=== PATIENT | male | born 1980 | race Caucasian/White ===

== ENCOUNTER 2016-05-31 04:18 | Emergency (ER) | payer MEDICAID ==
[~2016-05-31] VITALS: Ht 190.5 cm; Wt 106.7 kg
[2016-05-31] MEDS ORDERED: CLIN-60 PO (04:42)
[2016-05-31] MEDS ORDERED: BUPR1FIL3 SL (04:49)
[2016-05-31] MEDS ORDERED: LIDOCAINE 1%-EPI 1:100K, 30ML ONE (04:57)
[2016-05-31] MEDS ORDERED: DIPH,PERTUSS(ACELL),TET VAC/PF 0.5 ML IM-VACC ONE ×3 (04:58→05:12)
[2016-05-31] MEDS ORDERED: LIDOCAINE 1%-EPI 1:100K, 20ML SQ ONE (05:00)
[2016-05-31 06:01] VITALS: BP 136/81
== END 2016-05-31 06:05 | disposition home or self-care (01) ==
LOC: ED 05:50
DX: L02.413 Cutaneous abscess of right upper limb (principal); F19.10 Other psychoactive substance abuse, uncomplicated
CPT/HCPCS: 10060; 90471; 90715

== ENCOUNTER 2019-07-16 15:25 | Emergency (ER) | payer OTHER ==
[~2019-07-16] VITALS: Ht 185.4 cm; Wt 104.0 kg
[~2019-07-16 15:25] MED LIST: BUPR1FIL3 SL; CLIN150C14 PO
[2019-07-16 19:44] VITALS: BP 124/78
[2019-07-16] MEDS ORDERED: ZYPREXA (20:07)
[2019-07-16] MEDS ORDERED: PROZAC (20:07)
--- NOTE | 2019-07-16 20:07 | NUR ---
PT C/O NASAL CONGESTION AND GREEN DRAINAGE FOR ABOUT 1 YEAR. PT WAS SUPPPOSED TO HAVE SURGERY, BUT THEN WENT TO [facility]. PT CONNECTED TO MONITORING. CALL LIGHT IN REACH.
== END 2019-07-16 21:19 | disposition home or self-care (01) ==
LOC: ED 20:12
DX: A49.02 Methicillin resistant Staphylococcus aureus infection, unspecified site (principal); J01.10 Acute frontal sinusitis, unspecified; J01.00 Acute maxillary sinusitis, unspecified; L03.221 Cellulitis of neck; L03.114 Cellulitis of left upper limb; L03.113 Cellulitis of right upper limb; R51 Headache; M54.5 Low back pain; R00.0 Tachycardia, unspecified
CPT/HCPCS: 93005; 99283

== ENCOUNTER 2019-12-06 20:54 | Observation (INO) | payer BC, MEDICAID ==
[~2019-12-06] VITALS: Ht 190.5 cm; Wt 99.0 kg
[~2019-12-06 20:54] MED LIST changes: +PROZAC; +ZYPREXA
--- NOTE | 2019-12-06 21:00 | NUR ---
PT JEFF MONAHAN FROM [facility] FOR MRI/NEUROLOGICAL EVAL. PT REPORTS L SIDED NUMBNESS/WEAKNESS SINCE YESTERDAY. STATES HE WOKE UP ON THE BATHROOM FLOOR YESTERDAY AFTERNOON, HAD FALLEN OFF TOILET, POSSIBLE LOC. WENT IN TO ED AT [facility] [place] THIS MORNING D/T L SIDED WEAKNESS SYMPTOMS PERSISTING. PER EMS, TESTS DONE AT [facility] WERE NEGATIVE BUT PT TRANSFERRED HERE FOR MRI. PLACED IN C-COLLAR AT [facility] FOR POSSIBLE CERIVCAL COMPRESSION FRACTURE? PT ARRIVES TO ED SLEEPY, STATES HE RECEIVED ZYPREXA AT [facility]. OX4, ANSWERS QUESTIONS APPROPRIATELY. STILL C/O L SIDED NUMBNESS AND WEAKNESS NOTED TO SHEYLA.
--- NOTE | 2019-12-06 21:55 | NUR ---
PT SITTING UP IN GURNEY, RESTING, AWAKENS EASILY. ANSWERS QUESTIONS APPROPRIATELY.
--- NOTE | 2019-12-06 22:02 | NUR ---
MRI call in process started by Roman CYR
[2019-12-06 22:11] LABS: HCT (SEDRATE) 43.3 % (39.2-51.8)
--- NOTE | 2019-12-06 22:11 | NUR ---
PT TO MRI VIA [facility].
[2019-12-06 22:12] LABS: BASOPHILS % (AUTO) 1 % (0-1); EOSINOPHILS % (AUTO) 3 % (1-7); LYMPHOCYTES % (AUTO) 47 % (22-44); MEAN CORPUSCULAR HEMOGLOBIN 30.3 pg (27.5-34.5); MEAN CORPUSCULAR HGB CONC 34.2 g/dL (33.2-36.2); MONOCYTES % (AUTO) 9 % (2-9); NEUTROPHILS % (AUTO) 40 % (42-75); PLATELET COUNT 210 x10^3/uL (130-400); RED CELL DISTRIBUTION WIDTH 13.4 % (9.4-14.8)
[2019-12-06 22:18] LABS: ANION GAP 5 mmol/L (5-15); C-REACTIVE PROTEIN, QUANT 0.05 mg/dL (0.02-0.49); CALCIUM 9.5 mg/dL (8.5-10.1); CHLORIDE 104 mmol/L (98-107); CREATININE 0.84 mg/dL (0.7-1.3)
[2019-12-06 22:20] LABS: MD NO
[2019-12-06] MEDS ORDERED: GADOTERATE 10 MMOL/20 ML SYR ONE (23:13)
--- NOTE | 2019-12-06 23:33 | NUR ---
PT RETURNED FROM MRI. REPORTED TO VAIBHAV CYR.
--- NOTE | 2019-12-07 00:52 | NUR ---
PT SLEEPING, NO NEEDS AT THIS TIME
[2019-12-07] MEDS ORDERED: DOCUSATE 100 MG CAPSULE PO PRN (01:00)
[2019-12-07] MEDS ORDERED: LABETALOL 5MG/ML, 20ML IV PRN (01:00)
[2019-12-07] MEDS ORDERED: ACETAMINOPHEN 650 MG/20.3 ML UDC PO PRN (01:00)
--- NOTE | 2019-12-07 01:41 | NUR ---
Report given to KLARISSA Montano. Patient to be transferred to room 495.
[2019-12-07 02:00] VITALS: BP 128/81
[2019-12-07] MEDS: NICOTINE 14MG/24 HR PATCH.TD24 TD SCH (03:07)
[2019-12-07 04:17] VITALS: BP 136/76
[2019-12-07 05:53] VITALS: BP 113/68
[2019-12-07 06:05] VITALS: BP 113/68
[2019-12-07] MEDS: ASPIRIN 81 MG TABLET CHEW PO/NG SCH (08:49)
[2019-12-07 12:03] VITALS: BP 132/74
[2019-12-07] MEDS: FLUOXETINE HCL 20 MG CAPSULE PO SCH (13:25)
[2019-12-07] MEDS: OLANZAPINE 10 MG TABLET PO SCH (13:25)
[2019-12-07 20:43] VITALS: BP 111/77
[2019-12-07] MEDS ORDERED: ATORVASTATIN 40 MG TABLET PO SCH (21:00)
[2019-12-08 01:59] VITALS: BP 120/78
[2019-12-08 06:28] LABS: AMPHETAMINE SCREEN, URINE Positive (Negative); BARBITURATE SCREEN, URINE Negative (Negative); BENZODIAZEPINE SCREEN, URINE Negative (Negative); CANNABINOID SCREEN, URINE Negative (Negative); COCAINE SCREEN, URINE Negative (Negative); METHADONE SCREEN, URINE Negative (Negative); OPIATE SCREEN, URINE Positive (Negative)
[2019-12-08 06:29] LABS: CHOL/HDL RATIO 2.3; LDL/HDL RATIO 1.1 (0.5-3.0)
[2019-12-08 06:33] VITALS: BP 107/73
[2019-12-08] MEDS: NICOTINE 14MG/24 HR PATCH.TD24 TD SCH (08:10)
[2019-12-08] MEDS: ASPIRIN 81 MG TABLET CHEW PO/NG SCH (08:10)
[2019-12-08] MEDS: OLANZAPINE 10 MG TABLET PO SCH (12:24)
[2019-12-08] MEDS: FLUOXETINE HCL 20 MG CAPSULE PO SCH (12:24)
[2019-12-08 12:27] VITALS: BP 125/81
== END 2019-12-08 18:36 | disposition home or self-care (01) ==
LOC: ED 21:12 → EDIP 12-07 00:51 → INTOOBSV 12-07 00:51 → 4EST 12-07 01:55
PROVIDERS: ADMIT Family Medicine; ATTEND Family Medicine
DX: R53.1 Weakness (principal); F15.10 Other stimulant abuse, uncomplicated; F17.210 Nicotine dependence, cigarettes, uncomplicated; F11.10 Opioid abuse, uncomplicated; F41.8 Other specified anxiety disorders; Z86.19 Personal history of other infectious and parasitic diseases; Z79.899 Other long term (current) drug therapy
CPT/HCPCS: 36415; 70553; 72156; 80048; 80061; 80307; 85025; 85651; 86140; 93306; 93880; 97162; 99285; A9575; G0378

== ENCOUNTER 2019-12-31 15:38 | Inpatient (IN) | payer MEDICAID ==
[~2019-12-31] VITALS: Ht 190.5 cm; Wt 93.6 kg
[2019-12-31] MEDS ORDERED: SODIUM CHLORIDE FLUSH 10ML SYR IVF ONE ×2 (19:00→21:30)
--- NOTE | 2019-12-31 19:00 | NUR ---
RIGHT ELBOW CELLULITIS, MULTIPLE SCABS TO ARMS/TORSO ADMITS TO RECENT HEROIN USE DENIES CHILLS-APPEARS WELL
[2019-12-31 19:32] LABS: BASOPHILS % (AUTO) 0 % (0-1); EOSINOPHILS % (AUTO) 2 % (1-7); LYMPHOCYTES % (AUTO) 27 % (22-44); MEAN CORPUSCULAR HEMOGLOBIN 30.3 pg (27.5-34.5); MEAN CORPUSCULAR HGB CONC 33.9 g/dL (33.2-36.2); MEAN PLATELET VOLUME 7.9 fL (7.4-10.4); MONOCYTES % (AUTO) 9 % (2-9); NEUTROPHILS % (AUTO) 63 % (42-75); PLATELET COUNT 279 x10^3/uL (130-400); RED BLOOD COUNT 4.15 x10^6/uL (4.38-5.82); RED CELL DISTRIBUTION WIDTH 12.4 % (9.4-14.8)
[2019-12-31 19:34] LABS: ALANINE AMINOTRANSFERASE 49 U/L (12-78); ALBUMIN 3.3 g/dL (3.4-5.0); ANION GAP 3 mmol/L (5-15); CALCIUM 8.9 mg/dL (8.5-10.1); CHLORIDE 105 mmol/L (98-107); CREATININE 0.78 mg/dL (0.7-1.3)
[2019-12-31 19:36] LABS: ALKALINE PHOSPHATASE 107 U/L (45-117); BILIRUBIN,TOTAL 0.5 mg/dL (0.2-1.0); TOTAL PROTEIN 8.9 g/dL (6.4-8.2)
[2019-12-31 19:45] LABS: MD NO
--- NOTE | 2019-12-31 20:26 | NUR ---
ALL TESTING REVIEWED - PROVIDER MADE AWARE
[2019-12-31] MEDS ORDERED: PIPERACILLIN/TAZO/PMX 4.5GM 100 ML IVPB ONE (21:30)
[2019-12-31] MEDS ORDERED: VANCOMYCIN 2,400 MG in SODIUM CHLORIDE 0.9% 500 ML IV ONE (21:30)
[2019-12-31] MEDS ORDERED: VANCOMYCIN PER PHARMACY MC ONE (21:30)
--- NOTE | 2019-12-31 21:50 | NUR ---
BLOOD CULTURES X2 WELL PIV PLACEMENT ZOSYN ABOUT TO ADMINISTERED ALLERGIED CLARIFIED. PATIENT REPORTED "WELL I HAVE AN ALLERGY TO PENICILLIN IT GAVE ME A BAD RASH A CHILD SO SAYS MY MOM." PROVIDER MADE AWARE TO SWITCH ABX
[2019-12-31 21:53] LABS: BASOPHILS % (AUTO) 0 % (0-1); EOSINOPHILS % (AUTO) 2 % (1-7); LYMPHOCYTES % (AUTO) 29 % (22-44); MEAN CORPUSCULAR HEMOGLOBIN 30.3 pg (27.5-34.5); MEAN CORPUSCULAR HGB CONC 34.2 g/dL (33.2-36.2); MEAN PLATELET VOLUME 7.7 fL (7.4-10.4); MONOCYTES % (AUTO) 9 % (2-9); NEUTROPHILS % (AUTO) 59 % (42-75); PLATELET COUNT 254 x10^3/uL (130-400); RED BLOOD COUNT 4.14 x10^6/uL (4.38-5.82); RED CELL DISTRIBUTION WIDTH 12.1 % (9.4-14.8)
[2019-12-31 21:54] LABS: HCT (SEDRATE) 37.2 % (39.2-51.8)
[2019-12-31 21:55] LABS: MD NO
[2019-12-31] MEDS ORDERED: ONDANSETRON 2MG/ML, 2ML ONE (21:59)
[2019-12-31] MEDS ORDERED: ONDANSETRON 2MG/ML, 2ML IVPush ONE (22:00)
[2019-12-31] MEDS ORDERED: MORPHINE SULFATE 4 MG/ML, 1ML ONE (22:00)
[2019-12-31] MEDS ORDERED: CEFEPIME 1 GM in DEXTROSE 5% 50 ML IVPB ONE (22:00)
[2019-12-31] MEDS ORDERED: MORPHINE SULFATE 4 MG/ML, 1ML IVPush PRN (22:00)
[2019-12-31] MEDS ORDERED: SODIUM CHLORIDE 0.9% 1,000 ML IV ONE (22:00)
[2019-12-31] MEDS ORDERED: SODIUM CHLORIDE 0.9% 1,000ML IVBOLUS ONE (22:00)
[2019-12-31 22:04] LABS: ALANINE AMINOTRANSFERASE 47 U/L (12-78); ALBUMIN 3.1 g/dL (3.4-5.0); ANION GAP 2 mmol/L (5-15); CALCIUM 8.8 mg/dL (8.5-10.1); CHLORIDE 107 mmol/L (98-107); CREATININE 0.67 mg/dL (0.7-1.3)
[2019-12-31 22:06] LABS: ALKALINE PHOSPHATASE 102 U/L (45-117); BILIRUBIN,TOTAL 0.4 mg/dL (0.2-1.0); TOTAL PROTEIN 8.2 g/dL (6.4-8.2)
--- NOTE | 2019-12-31 22:10 | NUR ---
Ballet Dancer was told by provider(Ryan GUY)not to give Cefepime, to start the vanco instead.
[2019-12-31] MEDS ORDERED: FLUT16SP24 NS (22:18)
[2019-12-31] MEDS ORDERED: DOXY100C15 PO (22:18)
[2019-12-31] MEDS ORDERED: OLAN5TAB9 PO (22:18)
--- NOTE | 2019-12-31 22:20 | NUR ---
REPORT TO FAIZA CYR
[2019-12-31] MEDS ORDERED: POLYETHYLENE GLYCOL 17 GM PACKET PO PRN (23:00)
[2019-12-31] MEDS ORDERED: KETOROLAC 30 MG/1 ML IV PRN (23:00)
[2019-12-31] MEDS ORDERED: ONDANSETRON ODT 4 MG PO PRN (23:00)
[2019-12-31] MEDS: OLANZAPINE 5 MG TABLET PO SCH (23:00)
[2019-12-31] MEDS ORDERED: HEPARIN 5,000 UNITS/ML, 1ML SQ SCH (23:00)
[2019-12-31] MEDS ORDERED: VANCOMYCIN PER PHARMACY MC PRN (23:00)
[2019-12-31] MEDS ORDERED: OXYcodone IR 5MG TABLET PO PRN (23:00)
[2019-12-31] MEDS ORDERED: BISACODYL 10 MG SUPP PR PRN (23:00)
[2019-12-31] MEDS ORDERED: ACETAMINOPHEN 325 MG TABLET PO PRN (23:00)
--- NOTE | 2019-12-31 23:15 | NUR ---
Rec'd report from Josh CYR. Patient resting comfortably at this time. Hospitalist decided to wait on the cefepime, Vanco started instead until all admitting orders come in. VSS, call hilario within reach
[2019-12-31] MEDS ORDERED: PHARMACOKINETIC MONITORING MC PRN (23:30)
[2020-01-01 01:22] VITALS: BP 136/66
[2020-01-01] MEDS ORDERED: CEFTRIAXONE PMX 2GM/50ML 50 ML IVPB SCH (01:39)
[2020-01-01] MEDS: DOXYCYCLINE 100 MG in DEXTROSE 5% 250 ML IV SCH ×2 (03:11→14:46)
[2020-01-01 05:28] LABS: CALCIUM 8.3 mg/dL (8.5-10.1); CHLORIDE 107 mmol/L (98-107)
[2020-01-01 05:30] LABS: BASOPHILS % (AUTO) 0 % (0-1); EOSINOPHILS % (AUTO) 1 % (1-7); LYMPHOCYTES % (AUTO) 31 % (22-44); MEAN CORPUSCULAR HEMOGLOBIN 29.9 pg (27.5-34.5); MEAN CORPUSCULAR HGB CONC 33.7 g/dL (33.2-36.2); MEAN PLATELET VOLUME 8.2 fL (7.4-10.4); MONOCYTES % (AUTO) 9 % (2-9); NEUTROPHILS % (AUTO) 59 % (42-75); PLATELET COUNT 215 x10^3/uL (130-400); RED CELL DISTRIBUTION WIDTH 12.4 % (9.4-14.8)
[2020-01-01 05:31] LABS: ANION GAP 2 mmol/L (5-15); CREATININE 0.62 mg/dL (0.7-1.3)
[2020-01-01 05:34] LABS: MD NO
[2020-01-01 07:17] VITALS: BP 121/71
[2020-01-01] MEDS: FLUTICASONE NASAL SPRAY 16GM NAS SCH (09:00)
[2020-01-01] MEDS ORDERED: LORazepam 2 MG/ML, 1ML IVPush PRN (09:30)
[2020-01-01] MEDS ORDERED: GADOTERATE 10 MMOL/20 ML VIAL ONE (09:48)
[2020-01-01] MEDS: ENOXAPARIN 40 MG/0.4 ML SQ SCH (10:25)
[2020-01-01] MEDS: SENNA/DOCUSATE TABLET PO SCH (10:25)
[2020-01-01] MEDS: VANCOMYCIN 2,000 MG in SODIUM CHLORIDE 0.9% 500 ML IV SCH ×2 (11:22→23:11)
[2020-01-01 13:27] VITALS: BP 108/68
[2020-01-01 18:14] VITALS: BP 126/71
[2020-01-01] MEDS: OLANZAPINE 5 MG TABLET PO SCH (20:23)
[2020-01-02 00:59] VITALS: BP 116/71
[2020-01-02] MEDS: DOXYCYCLINE 100 MG in DEXTROSE 5% 250 ML IV SCH ×2 (02:47→15:34)
[2020-01-02 07:15] VITALS: BP 122/65
[2020-01-02] MEDS: SENNA/DOCUSATE TABLET PO SCH (07:59)
[2020-01-02] MEDS: ENOXAPARIN 40 MG/0.4 ML SQ SCH (08:00)
[2020-01-02] MEDS: FLUTICASONE NASAL SPRAY 16GM NAS SCH (08:02)
[2020-01-02] MEDS: VANCOMYCIN 2,000 MG in SODIUM CHLORIDE 0.9% 500 ML IV SCH ×2 (12:00→23:41)
[2020-01-02 13:22] VITALS: BP 119/67
[2020-01-02 19:10] VITALS: BP 129/71
[2020-01-02] MEDS: OLANZAPINE 5 MG TABLET PO SCH (19:51)
[2020-01-03 01:35] VITALS: BP 157/81
[2020-01-03 02:08] LABS: AMPHETAMINE SCREEN, URINE Positive (Negative); BARBITURATE SCREEN, URINE Negative (Negative); BENZODIAZEPINE SCREEN, URINE Negative (Negative); CANNABINOID SCREEN, URINE Negative (Negative); COCAINE SCREEN, URINE Negative (Negative); METHADONE SCREEN, URINE Negative (Negative); OPIATE SCREEN, URINE Positive (Negative)
[2020-01-03] MEDS: DOXYCYCLINE 100 MG in DEXTROSE 5% 250 ML IV SCH (03:36)
[2020-01-03 07:21] VITALS: BP 132/75
[2020-01-03] MEDS: SENNA/DOCUSATE TABLET PO SCH (09:00)
[2020-01-03] MEDS: FLUTICASONE NASAL SPRAY 16GM NAS SCH (09:43)
[2020-01-03] MEDS: ENOXAPARIN 40 MG/0.4 ML SQ SCH (09:43)
[2020-01-03] MEDS ORDERED: DOXY100C15 PO (10:12)
[2020-01-03] MEDS ORDERED: SULF1TAB24 PO (10:12)
[2020-01-03] MEDS: VANCOMYCIN 2,000 MG in SODIUM CHLORIDE 0.9% 500 ML IV SCH (11:00)
[2020-01-03] MEDS ORDERED: LORazepam 1MG TABLET PO ONE (12:00)
== END 2020-01-03 12:14 | disposition home or self-care (01) | DRG 603 ==
LOC: ED 16:54 → EDIP 22:58 → 3N 01-01 00:59
PROVIDERS: ADMIT Internal Medicine; ATTEND Hospitalist
DX: L03.113 Cellulitis of right upper limb (principal); M70.21 Olecranon bursitis, right elbow; B19.20 Unspecified viral hepatitis C without hepatic coma; D64.9 Anemia, unspecified; F11.10 Opioid abuse, uncomplicated; F15.10 Other stimulant abuse, uncomplicated; F17.210 Nicotine dependence, cigarettes, uncomplicated; F32.9 Major depressive disorder, single episode, unspecified; Z86.14 Personal history of Methicillin resistant Staphylococcus aureus infection; R70.0 Elevated erythrocyte sedimentation rate; Z86.73 Personal history of transient ischemic attack (TIA), and cerebral infarction without residual deficits; Z90.89 Acquired absence of other organs; Z88.0 Allergy status to penicillin
CPT/HCPCS: 36415; 73080; 87806; 96361; 96374; 96375; 99285; A9575; 71045; 80048; 80053; 80202; 80307; 83605; 85025; 85651; 87040; 87491; 87591; 93005; G0378; J0696; J1644; J1650; J2405; J3370; J7060; G0475; J2270; J7030; J7040

== ENCOUNTER 2020-10-16 14:53 | Emergency (ER) | payer MEDICAID, OTHER ==
[~2020-10-16] VITALS: Ht 182.9 cm; Wt 103.6 kg
[~2020-10-16 14:53] MED LIST changes: -CLIN150C14 PO; +CLIN150C15 PO; +DOXY-246 PO; +FLUT16SP24 NS; +OLAN5TAB69 PO; +SULF-23 PO
--- NOTE | 2020-10-16 15:17 | NUR ---
NO ANSWER FROM TRIAGE
[2020-10-16 15:26] VITALS: BP 135/82
[2020-10-16] MEDS ORDERED: IBUPROFEN 600 MG TABLET ONE (19:12)
[2020-10-16] MEDS ORDERED: BENZONATATE 100 MG CAPSULE ONE (19:12)
[2020-10-16] MEDS ORDERED: IBUPROFEN 200 MG TABLET PO ONE (19:30)
[2020-10-16] MEDS ORDERED: BENZONATATE 100 MG CAPSULE PO ONE (19:30)
== END 2020-10-16 19:22 | disposition home or self-care (01) ==
LOC: ED 18:57
DX: B34.9 Viral infection, unspecified (principal); Z20.822 Contact with and (suspected) exposure to COVID-19; F17.210 Nicotine dependence, cigarettes, uncomplicated
CPT/HCPCS: 71045; 99284; 99406; U0003; U0005

== ENCOUNTER 2020-10-20 14:17 | Inpatient (IN) | payer MEDICAID ==
[~2020-10-20] VITALS: Ht 190.5 cm; Wt 103.4 kg
--- NOTE | 2020-10-20 14:54 | NUR ---
chicken raiser note: Pt to room from xray when studies completed.
[2020-10-20] MEDS ORDERED: SODIUM CHLORIDE 0.9% 1,000ML IVBOLUS ONE (15:00)
[2020-10-20] MEDS ORDERED: ACETAMINOPHEN 500 MG TABLET PO ONE ×2 (15:00)
[2020-10-20] MEDS ORDERED: SODIUM CHLORIDE FLUSH 10ML SYR IVF ONE (15:00)
[2020-10-20] MEDS ORDERED: ACETAMINOPHEN 500 MG TABLET ONE (15:10)
--- NOTE | 2020-10-20 15:22 | NUR ---
PT UPRIGHT ON GURNEY AWAKE & COMFORTABLE, TALKING ON CELLPHONE, RESPONDS APPROP TO STAFF, NAD WITH SUPPL O2 IN PLACE, COMFORT MEASURES PROVIDED, CALL LIGHT WITHIN REACH.
[2020-10-20 15:40] LABS: ALANINE AMINOTRANSFERASE 84 U/L (12-78); ALBUMIN 3.3 g/dL (3.4-5.0); ANION GAP 7 mmol/L (5-15); CALCIUM 8.1 mg/dL (8.5-10.1); CHLORIDE 102 mmol/L (98-107); CREATININE 0.74 mg/dL (0.7-1.3)
[2020-10-20 15:43] LABS: ALKALINE PHOSPHATASE 69 U/L (45-117); BASOPHILS % (AUTO) 0 % (0-1); BILIRUBIN,TOTAL 0.6 mg/dL (0.2-1.0); EOSINOPHILS % (AUTO) 0 % (1-7); LYMPHOCYTES % (AUTO) 37 % (22-44); MEAN CORPUSCULAR HEMOGLOBIN 30.3 pg (27.5-34.5); MEAN CORPUSCULAR HGB CONC 35.1 g/dL (33.2-36.2); MEAN PLATELET VOLUME 8.4 fL (7.4-10.4); MONOCYTES % (AUTO) 10 % (2-9); NEUTROPHILS % (AUTO) 53 % (42-75); PLATELET COUNT 144 x10^3/uL (130-400); RED BLOOD COUNT 4.36 x10^6/uL (4.38-5.82); RED CELL DISTRIBUTION WIDTH 13.5 % (9.4-14.8); TOTAL PROTEIN 7.3 g/dL (6.4-8.2)
[2020-10-20 16:02] LABS: MICROSCOPIC INDICATED
--- NOTE | 2020-10-20 16:05 | NUR ---
PT REMAINS UPRIGHT ON GURNEY AWAKE & COMFORTABLE, WATCHING TV, RESPONDS APPROP TO STAFF, NAD WITH SUPPL O2 IN PLACE, NO NEEDS AT THIS TIME, CALL LIGHT WITHIN REACH.
[2020-10-20] MEDS ORDERED: DEXAMETHASONE 4 MG TABLET PO ONE (16:30)
[2020-10-20] MEDS ORDERED: DEXAMETHASONE 4 MG TABLET ONE (16:41)
--- NOTE | 2020-10-20 17:01 | NUR ---
PT UPRIGHT ON GURNEY ABLE TO DOZE OFF WITH TV ON, AWAKENS & RESPONDS APPROP TO STAFF, NAD WITH SUPPL O2 IN PLACE, NO NEEDS AT THIS TIME, CALL LIGHT WITHIN REACH.
--- NOTE | 2020-10-20 17:45 | NUR ---
PT DESAT TO 81% RA DURING AMBULATION- ERP AWARE.
[2020-10-20] MEDS ORDERED: CEFTRIAXONE 1,000 MG in DEXTROSE 5% 50 ML IVPB ONE (18:00)
[2020-10-20] MEDS ORDERED: DEXAMETHASONE 4 MG/ML, 1ML IVPush ONE (18:00)
[2020-10-20] MEDS ORDERED: DEXAMETHASONE 4 MG/ML, 1ML ONE ×2 (18:12→19:26)
[2020-10-20] MEDS ORDERED: OMNIPAQUE 350 MG/ML, 100ML BOTTLE ONE (18:49)
[2020-10-20] MEDS ORDERED: MELATONIN 5 MG TABLET PO PRN (19:00)
[2020-10-20] MEDS ORDERED: ENOXAPARIN 40 MG/0.4 ML SQ SCH (19:00)
[2020-10-20] MEDS ORDERED: ONDANSETRON 2MG/ML, 2ML IVPush PRN (19:00)
[2020-10-20] MEDS ORDERED: LABETALOL 5MG/ML, 20ML IVPush PRN (19:00)
[2020-10-20] MEDS ORDERED: POLYETHYLENE GLYCOL 17 GM PACKET PO PRN (19:00)
[2020-10-20] MEDS ORDERED: PHARMACY MAY ADJ FOR RENAL FX MC PRN (19:00)
--- NOTE | 2020-10-20 19:05 | NUR ---
REPORT GIVEN TO ADALGISA
--- NOTE | 2020-10-20 19:06 | NUR ---
RECIEVED REPORT FROM LELA CYR.
[2020-10-20] MEDS ORDERED: ENOXAPARIN 40 MG/0.4 ML ONE (19:26)
[2020-10-20] MEDS: DEXAMETHASONE 4 MG/ML, 1ML IVPush SCH (19:39)
--- NOTE | 2020-10-20 20:35 | NUR ---
Pt to be admitted to MEDICAL, room 336. Report called to GRACIE.
--- NOTE | 2020-10-20 20:57 | NUR ---
PATIENT ACCIDENTLY PULLED IV IN HAND WHEN UP USING URINAL. NEW IV STARTED IN LEFT FA.
[2020-10-20 21:32] VITALS: BP 103/61
[2020-10-20] MEDS: FAMOTIDINE 20 MG TABLET PO SCH (21:53)
[2020-10-20] MEDS: ASCORBIC ACID 500 MG TABLET PO SCH (21:53)
[2020-10-21] MEDS: DEXAMETHASONE 4 MG/ML, 1ML IVPush SCH ×2 (01:11→08:00)
[2020-10-21 02:34] VITALS: BP 110/68
[2020-10-21 05:59] LABS: BASOPHILS % (AUTO) 0 % (0-1); CHLORIDE 107 mmol/L (98-107); EOSINOPHILS % (AUTO) 0 % (1-7); LYMPHOCYTES % (AUTO) 20 % (22-44); MEAN CORPUSCULAR HEMOGLOBIN 30.2 pg (27.5-34.5); MEAN CORPUSCULAR HGB CONC 35.3 g/dL (33.2-36.2); MEAN PLATELET VOLUME 8.7 fL (7.4-10.4); MONOCYTES % (AUTO) 5 % (2-9); NEUTROPHILS % (AUTO) 75 % (42-75); PLATELET COUNT 150 x10^3/uL (130-400); RED BLOOD COUNT 4.52 x10^6/uL (4.38-5.82); RED CELL DISTRIBUTION WIDTH 13.3 % (9.4-14.8)
[2020-10-21 06:11] LABS: ANION GAP 5 mmol/L (5-15); CALCIUM 8.7 mg/dL (8.5-10.1); CREATININE 0.48 mg/dL (0.7-1.3)
[2020-10-21 07:46] VITALS: BP 110/69
[2020-10-21] MEDS: FAMOTIDINE 20 MG TABLET PO SCH (07:59)
[2020-10-21] MEDS: ASCORBIC ACID 500 MG TABLET PO SCH (07:59)
[2020-10-21] MEDS ORDERED: ZINC SULFATE 220 MG CAPSULE PO SCH (09:00)
[2020-10-21] MEDS ORDERED: ASCO500T9 PO (11:16)
[2020-10-21] MEDS ORDERED: ZINC220C8 PO (11:16)
== END 2020-10-21 12:34 | disposition home or self-care (01) | DRG 177 ==
LOC: ED 15:01 → EDIP 19:16 → 3N 21:24
PROVIDERS: ADMIT Internal Medicine; ATTEND Family Medicine
DX: U07.1 COVID-19 (principal); J12.82 Pneumonia due to coronavirus disease 2019; J96.01 Acute respiratory failure with hypoxia; F17.200 Nicotine dependence, unspecified, uncomplicated; F15.90 Other stimulant use, unspecified, uncomplicated; F11.90 Opioid use, unspecified, uncomplicated; Z86.14 Personal history of Methicillin resistant Staphylococcus aureus infection; Z88.0 Allergy status to penicillin
CPT/HCPCS: 36415; 71045; 71275; 80048; 80053; 81001; 83605; 84145; 85025; 87040; 87086; 96360; 99291; G0378; J0696; J1100; J1650; Q9967; J7030

== ENCOUNTER 2020-11-01 16:12 | Emergency (ER) | payer MEDICAID ==
[~2020-11-01] VITALS: Ht 190.5 cm; Wt 99.8 kg
[~2020-11-01 16:12] MED LIST changes: +ASCO500T9 PO; -CLIN150C15 PO; +CLIN150C17 PO; +ZINC220C8 PO
--- NOTE | 2020-11-01 17:47 | NUR ---
PRODUCTION SOUND MIXER: EKG COMPLETED IN TRIAGE.
[2020-11-01 18:09] LABS: BASOPHILS % (AUTO) 0 % (0-1); EOSINOPHILS % (AUTO) 0 % (1-7); LYMPHOCYTES % (AUTO) 9 % (22-44); MEAN CORPUSCULAR HEMOGLOBIN 29.7 pg (27.5-34.5); MEAN CORPUSCULAR HGB CONC 34.7 g/dL (33.2-36.2); MEAN PLATELET VOLUME 7.7 fL (7.4-10.4); MONOCYTES % (AUTO) 9 % (2-9); NEUTROPHILS % (AUTO) 82 % (42-75); PLATELET COUNT 325 x10^3/uL (130-400); RED BLOOD COUNT 4.61 x10^6/uL (4.38-5.82)
--- NOTE | 2020-11-01 18:10 | NUR ---
THIS IS A 39 YO M W/ C/O SOB AND INCREASED WEAKNESS SINCE 10/16/20. PT WAS ADMITTED AT THAT TIME FOR SAME, TEST "INVALID". PT TACHYCARDIC AND FEBRILE. PIV STARTED, 1ST SET OF BLOOD CULTURES DRAWN, LAB AT BEDSIDE FOR 2ND SET. PT RESTING ON GURNEY W/ CALL LIGHT IN REACH AND SIDE RAILS UPX2. RESP EVEN AND UNLABORED, NADN.
--- NOTE | 2020-11-01 18:15 | NUR ---
PT ALSO REPORTS TO THIS RN THAT HE STOPPED USING HEROIN 3-4 DAYS AGO. DENIES WITHDRAWAL SYMPTOMS.
[2020-11-01 18:21] LABS: ALBUMIN 3.2 g/dL (3.4-5.0); ANION GAP 6 mmol/L (5-15); CHLORIDE 98 mmol/L (98-107)
[2020-11-01 18:25] LABS: ALANINE AMINOTRANSFERASE 70 U/L (12-78); ALKALINE PHOSPHATASE 92 U/L (45-117); BILIRUBIN,TOTAL 1.4 mg/dL (0.2-1.0); CREATININE 0.97 mg/dL (0.7-1.3); TOTAL PROTEIN 8.5 g/dL (6.4-8.2)
[2020-11-01] MEDS ORDERED: LACTATED RINGERS 1,000 ML IVBOLUS ONE ×2 (18:30→19:00)
--- NOTE | 2020-11-01 18:37 | NUR ---
PT PROVIDED W/ URINAL, EDUCATED ON NEED FOR SAMPLE.
--- NOTE | 2020-11-01 18:41 | NUR ---
PT DESAT TO 78% W/ GOOD WAVEFORM WHILE SLEEPING. 96% WHEN AWAKE. PLACED ON 3L NC FOR SAFETY.
[2020-11-01] MEDS ORDERED: ACETAMINOPHEN 500 MG TABLET ONE (18:42)
--- NOTE | 2020-11-01 18:49 | NUR ---
O2 SENSOR REPLACED, PT TITRATED DOWN TO 1L NC.
--- NOTE | 2020-11-01 18:56 | NUR ---
REPORT FROM KLARISSA BALDERRAMA
[2020-11-01] MEDS ORDERED: DOXYCYCLINE 100 MG in DEXTROSE 5% 250 ML IV SCH (19:00)
[2020-11-01] MEDS ORDERED: ACETAMINOPHEN 500 MG TABLET PO ONE (19:00)
[2020-11-01] MEDS ORDERED: DOXYCYCLINE 100 MG in DEXTROSE 5% 250 ML IV ONE (19:30)
[2020-11-01] MEDS ORDERED: DEXAMETHASONE 4 MG/ML, 1ML IVPush ONE (20:30)
--- NOTE | 2020-11-01 20:43 | NUR ---
PT UPDATED ON POC. AGREEABLE. WILL FINISH IVF AND ABX, THEN DISCHARGE
[2020-11-01] MEDS ORDERED: DEXAMETHASONE 4 MG/ML, 5ML ONE (21:10)
[2020-11-01 21:11] VITALS: BP 107/55
== END 2020-11-01 21:29 | disposition home or self-care (01) ==
LOC: ED 18:30
DX: A41.9 Sepsis, unspecified organism (principal); J15.9 Unspecified bacterial pneumonia; R00.0 Tachycardia, unspecified; R06.02 Shortness of breath; F17.200 Nicotine dependence, unspecified, uncomplicated
CPT/HCPCS: 36415; 71045; 80053; 80320; 82728; 83605; 83615; 85025; 87040; 93005; 96361; 96365; 96375; 99291; J1100; J7060; J7120; G0480